=== PATIENT | male | born 1995 | race Caucasian/White ===

== ENCOUNTER 2018-02-08 13:45 | Emergency (ER) | payer OTHER ==
--- NOTE | 2018-02-08 13:54 | ER Report ---
History and Physical Time Seen By MD: 13:54 HPI/ROS CHIEF COMPLAINT: Left-sided chest pain, pain that radiates down left arm HISTORY OF PRESENT ILLNESS: 22-year-old male patient presents to emergency room with complaint of left-sided chest pain, pain that radiates down left arm. Patient states this started approximately 30 minutes prior to arrival here in the emergency room. Patient states that he was sitting at a computer was working on school work when the pain started. Patient states that the pain seems start at the proximal left upper arm and then radiate down to the left antecubital. Patient states that he has not had anything that seems to make the pain better or worse. He states he is not having shortness of breath. He denies any fevers, chills, nausea, vomiting or diarrhea. REVIEW OF SYSTEMS: Respiratory: As noted above Cardiovascular: As noted above Gastrointestinal: No vomiting, no abdominal pain. Musculoskeletal: No back pain. Allergies: Coded Allergies: No Known Allergies (Verified Allergy, Unknown, 02/08/18) Home Meds No Active Prescriptions or Reported Meds Past Medical/Surgical History Patient denies any pertinent medical or surgical history. Reviewed Nurses Notes: Yes Constitutional Vital Sign - Last 24 Hours 02/08/18 02/08/18 02/08/18 02/08/18 13:48 13:51 14:15 14:30 Temp 99.0 Pulse 106 96 Resp 14 15 B/P (MAP) 146/95 (112) 146/95 133/81 (98) 119/82 (94) Pulse Ox 99 92 O2 Delivery Room Air 02/08/18 02/08/18 02/08/18 02/08/18 14:35 14:44 15:00 15:05 Pulse ??? 84 Resp 13 18 B/P (MAP) 133/89 (104) 127/80 (96) Pulse Ox 91 93 02/08/18 02/08/18 02/08/18 02/08/18 15:30 15:35 15:40 16:00 Pulse 75 78 Resp 18 13 B/P (MAP) 117/83 (94) 128/69 (88) Pulse Ox 94 92 02/08/18 02/08/18 16:10 16:40 Pulse 82 82 Resp 17 15 Pulse Ox 92 94 Physical Exam General Appearance: The patient is alert, has no immediate need for airway protection and no current signs of toxicity. Respiratory: Chest is non tender, lungs are clear to auscultation. Cardiac: regular rate and rhythm Gastrointestinal: Abdomen is soft and non tender, no masses, bowel sounds normal. Musculoskeletal: Neck: Neck is supple and non tender. Extremities have full range of motion and are non tender. Skin: No rashes or lesions. DIFFERENTIAL DIAGNOSIS: After history and physical exam differential diagnosis was considered for chest pain including but not limited to myocardial ischemia, pericarditis pulmonary embolus, chest wall pain, pleural inflammation and pulmonary infectious causes. The differential is influenza. Medical Decision Making Data Points Result Diagram: 02/08/18 1400 02/08/18 1400 Laboratory Hematology Test 02/08/18 14:00 02/08/18 14:40 02/08/18 16:28 Red Blood Count 5.37 M/uL (4.00-5.60) Mean Corpuscular Volume 88.4 fL (80.0-96.0) Mean Corpuscular Hemoglobin 30.0 pg (26.0-33.0) Mean Corpuscular Hemoglobin Concent 34.0 g/dL (32.0-36.0) Red Cell Distribution Width 13.3 % (11.5-14.5) Mean Platelet Volume 8.1 fL (7.2-11.1) Neutrophils (%) (Auto) 53.1 % (39.4-72.5) Lymphocytes (%) (Auto) 36.8 % (17.6-49.6) Monocytes (%) (Auto) 7.5 % (4.1-12.4) Eosinophils (%) (Auto) 2.0 % (0.4-6.7) Basophils (%) (Auto) 0.6 % (0.3-1.4) Nucleated RBC Relative Count (auto) 0.2 /100WBC Neutrophils # (Auto) 4.4 K/uL (2.0-7.4) Lymphocytes # (Auto) 3.1 K/uL (1.3-3.6) Monocytes # (Auto) 0.6 K/uL (0.3-1.0) Eosinophils # (Auto) 0.2 K/uL (0.0-0.5) Basophils # (Auto) 0.0 K/uL (0.0-0.1) Nucleated RBC Absolute Count (auto) 0.01 K/uL Sodium Level 138 mmol/L (137-145) Potassium Level 3.5 mmol/L (3.5-5.0) Chloride Level 102 mmol/L (98-107) Carbon Dioxide Level 24 mmol/L (22-30) Blood Urea Nitrogen 16 mg/dl (9-21) Creatinine 1.10 mg/dl (0.66-1.25) Glomerular Filtration Rate Calc > 60.0 Random Glucose 101 mg/dl (75-110) Calcium Level 9.8 mg/dl (8.4-10.2) Total Bilirubin 1.1 mg/dl (0.2-1.3) Aspartate Amino Transf (AST/SGOT) 33 U/L (0-35) Alanine Aminotransferase (ALT/SGPT) 36 U/L (0-56) Alkaline Phosphatase 68 U/L (0-126) Total Protein 8.3 g/dl (6.3-8.2) Albumin 4.7 g/dl (3.5-5.0) Influenza Virus Type A (PCR) Negative (NEGATIVE) Influenza Virus Type B (PCR) Negative (NEGATIVE) Troponin I < 0.012 ng/ml Chemistry Test 02/08/18 14:00 02/08/18 14:40 02/08/18 16:28 White Blood Count 8.3 k/uL (4.5-11.0) Red Blood Count 5.37 M/uL (4.00-5.60) Hemoglobin 16.1 g/dL (14.0-18.0) Hematocrit 47.5 % (42.0-52.0) Mean Corpuscular Volume 88.4 fL (80.0-96.0) Mean Corpuscular Hemoglobin 30.0 pg (26.0-33.0) Mean Corpuscular Hemoglobin Concent 34.0 g/dL (32.0-36.0) Red Cell Distribution Width 13.3 % (11.5-14.5) Platelet Count 262 K/uL (150-450) Mean Platelet Volume 8.1 fL (7.2-11.1) Neutrophils (%) (Auto) 53.1 % (39.4-72.5) Lymphocytes (%) (Auto) 36.8 % (17.6-49.6) Monocytes (%) (Auto) 7.5 % (4.1-12.4) Eosinophils (%) (Auto) 2.0 % (0.4-6.7) Basophils (%) (Auto) 0.6 % (0.3-1.4) Nucleated RBC Relative Count (auto) 0.2 /100WBC Neutrophils # (Auto) 4.4 K/uL (2.0-7.4) Lymphocytes # (Auto) 3.1 K/uL (1.3-3.6) Monocytes # (Auto) 0.6 K/uL (0.3-1.0) Eosinophils # (Auto) 0.2 K/uL (0.0-0.5) Basophils # (Auto) 0.0 K/uL (0.0-0.1) Nucleated RBC Absolute Count (auto) 0.01 K/uL Glomerular Filtration Rate Calc > 60.0 Calcium Level 9.8 mg/dl (8.4-10.2) Total Bilirubin 1.1 mg/dl (0.2-1.3) Aspartate Amino Transf (AST/SGOT) 33 U/L (0-35) Alanine Aminotransferase (ALT/SGPT) 36 U/L (0-56) Alkaline Phosphatase 68 U/L (0-126) Total Protein 8.3 g/dl (6.3-8.2) Albumin 4.7 g/dl (3.5-5.0) Influenza Virus Type A (PCR) Negative (NEGATIVE) Influenza Virus Type B (PCR) Negative (NEGATIVE) Troponin I < 0.012 ng/ml EKG/Imaging EKG Interpretation 12 lead EKG: Rhythm: normal sinus rhythm with ventricular rate of 83 bpm [place]: normal QRS: normal ST segments: normal Imaging TECHNIQUE: ELBOW 3 VIEW LEFT COMPARISON: None FINDINGS: The alignment is normal. No effusion. No fracture. IMPRESSION: No acute osseous abnormality. Report Dictated By: Kortney Ventura MD at 02/08/2018 4:19 PM Report E-Signed By: Kortney Ventura MD at 02/08/2018 4:21 PM 2 VIEWS CHEST INDICATION: Chest pain and left arm pain. COMPARISON: None available FINDINGS: Cardiomediastinal silhouette and pulmonary vessels within normal limits. There is no focal infiltrate or lobar consolidation. There is no pneumothorax or pleural effusion. No nodule. Upper abdomen is unremarkable. No acute bony abnormality. IMPRESSION: 1. No acute cardiopulmonary process. Report Dictated By: Will Osorio at 02/08/2018 2:48 PM Report E-Signed By: Will Osorio at 02/08/2018 2:50 PM ED Course/Re-evaluation ED Course Patient was admitted and examined, history and physical were obtained. Differential diagnoses were considered. On examination lungs are clear, heart is regular, abdomen soft nontender. A CBC, CMP, troponin, EKG, chest x-ray, x-ray of the left elbow, influenza screen were done. Labs were unremarkable, chest x- ray was negative, x-ray of the left elbow was negative. Influenza screen was negative. We did monitor the patient for several hours. He had an improvement and resolution of his pain. We did do a repeat troponin at that time which was negative. I believe the patient likely was having muscle spasms was causing his discomfort. We will go ahead and discharge patient home this time. He is to increase fluid intake, get plenty of rest. He is follow-up with a [facility] primary care provider in the next week. Patient verbalized understanding and agreement with plan. I did discuss the plan with his mother and she stated understanding and agreement with plan as well. Decision to Disposition Date: Feb 08, 2018 Decision to Disposition Time: 16:59 Depart Departure Latest Vital Signs Vital Signs Date Time Temp Pulse Resp B/P (MAP) Pulse Ox O2 Delivery O2 Flow Rate FiO2 02/08/18 16:40 82 15 94 02/08/18 16:00 128/69 (88) 02/08/18 13:51 99.0 Room Air Impression: Primary Impression: Chest pain Condition: Improved Disposition: HOME OR SELF-CARE New Scripts No Active Prescriptions or Reported Meds Patient Instructions: Chest Pain (ED) Additional Instructions: Increase fluid intake. Get plenty of rest. Follow up with a primary care provider at [facility] in the next week. Return to the ER if you have shortness of breath or chest pain with activity. You are okay to continue exercising, but limit activity by pain. Problem Qualifiers Primary Impression: Chest pain Chest pain type: other chest pain Qualified Codes: R07.89 - Other chest pain SIXTO BLISS Feb 08, 2018 13:54
[2018-02-08] MEDS ORDERED: ASPIRIN 81 MG CHEW PO ONE (14:10)
[2018-02-08 14:15] LABS: PLATELET COUNT, AUTOMATED 262 K/uL (150-450)
--- NOTE | 2018-02-08 14:17 | EKG ---
FACILITY: [facility] - [place] PATIENT NAME: EDWARD STUART : [id number] MR: [id number] V: [id number] EXAM DATE: ORDERING PHYSICIAN: SIXTO BLISS TECHNOLOGIST: RANDALL Oviedo Reason : CHEST PRESSURE Blood Pressure : / mmHG Vent. Rate : 083 BPM Atrial Rate : 083 BPM P-R Int : 126 ms QRS Dur : 102 ms QT Int : 358 ms P-R-T Axes : 032 065 043 degrees QTc Int : 420 ms Normal sinus rhythm with sinus arrhythmia Normal ECG No previous ECGs available Confirmed by PAUL NASSAR ([id number]) on 02/08/2018 4:34:54 PM Referred By: IZAIAH Confirmed By:PAUL NASSAR
--- NOTE | 2018-02-08 14:54 | RADIOLOGY IMAGING REPORT ---
FACILITY: [facility] - [place] PATIENT NAME: Ozzie Jara : 1995 MR: [id number] V: [id number] EXAM DATE: ORDERING PHYSICIAN: SIXTO BLISS TECHNOLOGIST: Location: [facility] [place] Patient: Ozzie Jara : 1995 Visit/Account:[id number] Date of Sevice: 02/08/2018 2 VIEWS CHEST INDICATION: Chest pain and left arm pain. COMPARISON: None available FINDINGS: Cardiomediastinal silhouette and pulmonary vessels within normal limits. There is no focal infiltrate or lobar consolidation. There is no pneumothorax or pleural effusion. No nodule. Upper abdomen is unremarkable. No acute bony abnormality. IMPRESSION: 1. No acute cardiopulmonary process. Report Dictated By: Will Osorio at 02/08/2018 2:48 PM Report E-Signed By: Will Osorio at 02/08/2018 2:50 PM WSN:[id number]
[2018-02-08 16:00] VITALS: BP 128/69
--- NOTE | 2018-02-08 16:26 | RADIOLOGY IMAGING REPORT ---
FACILITY: [facility] PATIENT NAME: Ozzie Jara : 1995 MR: [id number] V: [id number] EXAM DATE: ORDERING PHYSICIAN: SIXTO BLISS TECHNOLOGIST: Location: [facility] [place] Patient: Ozzie Jara : 1995 Visit/Account:[id number] Date of Sevice: 02/08/2018 INDICATION: throbbing to the left elbow.. DATE: 02/08/2018 4:19 PM. TECHNIQUE: ELBOW 3 VIEW LEFT COMPARISON: None FINDINGS: The alignment is normal. No effusion. No fracture. IMPRESSION: No acute osseous abnormality. Report Dictated By: Kortney Ventura MD at 02/08/2018 4:19 PM Report E-Signed By: Kortney Ventura MD at 02/08/2018 4:21 PM WSN:[id number]
== END 2018-02-08 17:16 | disposition home or self-care (01) ==
LOC: ER 14:03
DX: R07.89 Other chest pain (principal)
CPT/HCPCS: 71046; 82040; 82247; 82310; 82374; 82435; 82565; 82947; 84075; 84132; 84155; 84295; 84450; 84460; 84484; 84520; 85025; 87502; 93005; 99284

== ENCOUNTER → 2018-11-11 | Outpatient (CLI) | payer OTHER ==
[~2018-11-11] MED LIST: DICY10CA11 PO
== END ==
LOC: LAB 09:43
PROVIDERS: ATTEND Surgery
DX: Z02.9 Encounter for administrative examinations, unspecified (principal)